=== PATIENT | male | born 1955 | race Caucasian/White ===

== ENCOUNTER 2018-01-11 22:11 | Emergency (ER) | payer OTHER ==
[~2018-01-11] VITALS: Ht 190.5 cm; Wt 102.1 kg
[2018-01-11 22:20] VITALS: TEMP 36.8; Ht 190.5 cm; Wt 102.1 kg
--- NOTE | 2018-01-11 23:09 | DIAGNOSTIC IMAGING REPORT ---
KUB HISTORY: Foreign body of the rectum. fb rectum COMPARISON: None. FINDINGS: The bowel gas pattern is non-obstructive. Foreign body of the pelvis measures up to 19.8 x 3.7 cm. foreign body contains metallic density components with apparent batteries. Dystrophic calcifications are seen of the pelvis adjacent to the iliac crests and projecting over the right superior pubic ramus. Levoscoliosis of the lumbar spine with corpectomy changes and lateral plate and screw fusion hardware at L2-L4. Moderate stool volume of the right hemicolon. There is no organomegaly. No renal calculi. No ureteral calculi. No pneumoperitoneum or pneumatosis. No fracture. IMPRESSION: 1. 19.8 cm foreign body of the pelvis. 2. Nonobstructive bowel gas pattern. Electronically signed by: Henry Portillo M.D. 01/11/2018 11:07 PM Dictated Date/Time: 01/11/2018 11:03 PM
[2018-01-11] MEDS ORDERED: SODIUM CHLORIDE 0.9% 1000ML 1,000 ML IV STA (23:12)
[2018-01-11] MEDS ORDERED: MULT-506 PO (23:17)
[2018-01-11] MEDS ORDERED: OMEGCAP2 PO (23:18)
[2018-01-11] MEDS ORDERED: MULT-188 PO (23:18)
[2018-01-11] MEDS ORDERED: ASPI81TA28 PO (23:19)
[2018-01-11] MEDS ORDERED: TADA10TA PO (23:19)
[2018-01-11] MEDS ORDERED: CINN500T PO (23:20)
[2018-01-11] MEDS ORDERED: MoRPHine SULFATE 4 MG/ML 1 ML CARP\\VIAL IV STA (23:24)
[2018-01-11 23:49] LABS: BASO % 0.2 %; BASO ABS # 0.02 K/uL (0-0.2); EOS % 1.9 %; EOS ABS # 0.17 K/uL (0-0.5); HEMATOCRIT 37.5 % (42-52); IG# 0.02 K/uL (0.00-0.02); LYMPH % 14.2 %; LYMPH ABS # 1.26 K/uL (1.2-3.4); MEAN CELL VOLUME 87.4 fL (80-100); MEAN CORPUSCULAR HEMOGLOBIN 32.6 pg (25-34); MEAN CORPUSCULAR HGB CONC 37.3 g/dl (32-36); MEAN PLATELET VOLUME 8.5 fL (7.4-10.4); MONO % 7.9 %; NEUT % 75.6 %; NEUT ABS # 6.68 K/uL (1.4-6.5); PLATELET COUNT 199 K/uL (130-400); RED CELL DISTRIBUTION WIDTH CV 12.8 % (11.5-14.5); WHITE BLOOD COUNT 8.85 K/uL (4.8-10.8)
[2018-01-12 00:06] LABS: CALCIUM 8.1 mg/dl (8.5-10.1); CREATININE 0.95 mg/dl (0.60-1.40); POTASSIUM 3.7 mmol/L (3.5-5.1)
[2018-01-12 00:28] LABS: PTT PATIENT 26.5 SECONDS (21.0-31.0)
[2018-01-12] MEDS ORDERED: METRONIDAZOLE 500MG / 100ML NSS IV STA (00:38)
[2018-01-12] MEDS ORDERED: PIPERACILLIN/TAZOBACTAM 4.5 GM/100ML D5W IV STA (00:38)
--- NOTE | 2018-01-12 00:41 | EMERGENCY ROOM VISIT NOTE ---
History Report prepared by Charles: Felecia Galdamez Under the Supervision of: Nimco SyedO. First contact with patient: 22:29 Chief Complaint: FOREIGNBODY ANY BODY PART Stated Complaint: BOWEL OBSTRUCTION, CANT PASS FECES History of Present Illness The patient is a 62 year old male who presents to the Emergency Room with complaints of persistent foreign body lodged in rectum. He states that he was using a vibrator toy and accidently got it stuck in his rectum. He states it has been in there for 1.5 hours. He reports using a hook tool to try and catch it while pushing, though was unsuccessful. The patient's spouse states the vibrator is one piece and the vibrating portion is further up. The patient reports abdominal pain. Source of History: patient Onset: 1.5 hours Position: other (rectum) Quality: other (lodged foreign body) Timing: other (persistent) Associated Symptoms: + abdominal pain Review of Systems See HPI for pertinent positives & negatives. A total of 10 systems reviewed and were otherwise negative. Past Medical & Surgical Surgical Problems: (1) History of toe surgery (2) Previous back surgery Family History Cancer Hypertension Social History Smoking Status: Never Smoker Smokeless Tobacco Use: No Alcohol Use: occasionally Drug Use: none Marital Status: Housing Status: lives with significant other Occupation Status: employed Current/Historical Medications Scheduled Aspirin (Aspirin Ec), 81 MG PO DAILY Cinnamon (Cinnamon), Unknown Dose PO DAILY Multiple Vitamins W/ Minerals (Ocuvite), 1 TAB PO DAILY Multivitamin (Multivitamin), 1 TAB PO DAILY [place]-3 Fatty Acids (Fish Oil), 1 CAP PO DAILY Tadalafil (Cialis), 5 MG PO UD Allergies Coded Allergies: No Known Allergies (Unverified , 01/11/18) Physical Exam Vital Signs Date Time Temp Pulse Resp B/P (MAP) Pulse Ox O2 Delivery O2 Flow Rate FiO2 01/12/18 00:39 112 20 141/94 94 Room Air 01/11/18 23:57 108 16 132/86 95 Room Air 01/11/18 22:20 36.8 88 18 194/108 96 Room Air Physical Exam CONSTITUTIONAL/VITAL SIGNS: Reviewed / noted above. GENERAL: Non-toxic in appearance. INTEGUMENTARY: Warm, dry, and [place]. HEAD: Normocephalic. EYES: without scleral icterus or trauma. ENT/OROPHARYNX: clear and moist. LYMPHADENOPATHY/NECK: Is supple without lymphadenopathy or meningismus. RESPIRATORY: Lungs clear and equal. CARDIOVASCULAR: Regular rate and rhythm. GI/ABDOMEN: Soft and nontender. No organomegaly or pulsatile mass. No rebound or guarding. Normal bowel sounds. EXTREMITIES: Warm and well perfused. BACK: No CVA tenderness. NEUROLOGICAL: Intact without focal deficits. PSYCHIATRIC: normal affect. MUSCULOSKELETAL: Normally developed with good muscle tone. RECTAL: Gross bleeding on rectal exam. Medical Decision & Procedures ER Provider Diagnostic Interpretation: Radiology results as stated below per my review and radiologist interpretation: KUB HISTORY: Foreign body of the rectum. fb rectum COMPARISON: None. FINDINGS: The bowel gas pattern is non-obstructive. Foreign body of the pelvis measures up to 19.8 x 3.7 cm. foreign body contains metallic density components with apparent batteries. Dystrophic calcifications are seen of the pelvis adjacent to the iliac crests and projecting over the right superior pubic ramus. Levoscoliosis of the lumbar spine with corpectomy changes and lateral plate and screw fusion hardware at L2-L4. Moderate stool volume of the right hemicolon. There is no organomegaly. No renal calculi. No ureteral calculi. No pneumoperitoneum or pneumatosis. No fracture. IMPRESSION: 1. 19.8 cm foreign body of the pelvis. 2. Nonobstructive bowel gas pattern. Electronically signed by: Henry Portillo M.D. 01/11/2018 11:07 PM Dictated Date/Time: 01/11/2018 11:[address] ABDOMEN & PELVIS Without Contrast: Large elongated foreign body with metallic components within the rectum and sigmoid colon. Suggest correlation with clinical history. Evidence of local perforation with free air adjacent to the rectum in the presacral region. No abscess. Radiologist: Derek Metzger MD. Study ready at 23:45 and initial results transmitted at 00:26 Laboratory Results 01/11/18 23:39 Red Blood Count 4.29, Mean Corpuscular Volume 87.4, Mean Corpuscular Hemoglobin 32.6, Mean Corpuscular Hemoglobin Concent 37.3, Mean Platelet Volume 8.5, Neutrophils (%) (Auto) 75.6, Lymphocytes (%) (Auto) 14.2, Monocytes (%) (Auto) 7.9, Eosinophils (%) (Auto) 1.9, Basophils (%) (Auto) 0.2, Neutrophils # (Auto) 6.68, Lymphocytes # (Auto) 1.26, Monocytes # (Auto) 0.70, Eosinophils # (Auto) 0.17, Basophils # (Auto) 0.02 01/11/18 23:39 Test 01/11/18 23:39 White Blood Count 8.85 K/uL (4.8-10.8) Red Blood Count 4.29 M/uL (4.7-6.1) Hemoglobin 14.0 g/dL (14.0-18.0) Hematocrit 37.5 % (42-52) Mean Corpuscular Volume 87.4 fL (80-100) Mean Corpuscular Hemoglobin 32.6 pg (25-34) Mean Corpuscular Hemoglobin Concent 37.3 g/dl (32-36) Platelet Count 199 K/uL (130-400) Mean Platelet Volume 8.5 fL (7.4-10.4) Neutrophils (%) (Auto) 75.6 % Lymphocytes (%) (Auto) 14.2 % Monocytes (%) (Auto) 7.9 % Eosinophils (%) (Auto) 1.9 % Basophils (%) (Auto) 0.2 % Neutrophils # (Auto) 6.68 K/uL (1.4-6.5) Lymphocytes # (Auto) 1.26 K/uL (1.2-3.4) Monocytes # (Auto) 0.70 K/uL (0.11-0.59) Eosinophils # (Auto) 0.17 K/uL (0-0.5) Basophils # (Auto) 0.02 K/uL (0-0.2) RDW Standard Deviation 41.0 fL (36.4-46.3) RDW Coefficient of Variation 12.8 % (11.5-14.5) Immature Granulocyte % (Auto) 0.2 % Immature Granulocyte # (Auto) 0.02 K/uL (0.00-0.02) Prothrombin Time 10.6 SECONDS (9.0-12.0) Prothromb Time International Ratio 1.0 (0.9-1.1) Activated Partial Thromboplast Time 26.5 SECONDS (21.0-31.0) Partial Thromboplastin Ratio 1.0 Anion Gap 9.0 mmol/L (3-11) Est Creatinine Clear Calc Drug Dose 103.0 ml/min Estimated GFR () 98.3 Estimated GFR (Non- 84.9 BUN/Creatinine Ratio 16.0 (10-20) Calcium Level 8.1 mg/dl (8.5-10.1) Laboratory results as stated above per my review. Medications Administered Medications (Trade) Dose Ordered Sig/Miranda Route Start Time Stop Time Status Last Admin Dose Admin Sodium Chloride 1,000 ml @ 999 mls/hr Q1H1M STAT IV 01/11/18 23:12 01/12/18 00:12 DC 01/11/18 23:50 999 MLS/HR Morphine Sulfate (MoRPHine SULFATE INJ) 4 mg NOW STAT IV 01/11/18 23:24 01/11/18 23:25 DC 01/11/18 23:51 4 MG Piperacillin Sod/ Tazobactam Sod (Zosyn Iv) 4.5 gm NOW STAT IV 01/12/18 00:38 01/12/18 00:39 DC 01/12/18 00:45 4.5 GM Metronidazole (Flagyl / Nss) 500 mg NOW STAT IV 01/12/18 00:38 01/12/18 00:39 DC 01/12/18 00:50 500 MG Procedure Foreign body removal: I attempted to remove the foreign body with obstetric forceps, though was unsuccessful. On insertion of the speculum a moderate amount of bleeding was noted, the speculum was inserted to attempt to feel the device but unable to touch the device, but a vibration was felt in the vicinity. ED Course 4: Previous medical records were reviewed. The patient was evaluated in room B9. A complete history and physical examination was performed. I attempted to remove the foreign body, though was unsuccessful. Please see procedural note. I informed the patient that the surgeon will be notified. 2310: I spoke with Scooby Davis PA-C, general surgery. We discussed the patient' s case. The patient will be evaluated. 2312: Ordered Sodium Chloride 1,000 ml @ 999 mls/hr IV 2315: I reassessed the patient at this time. The patient agreed to have a CT scan. 2324: Ordered Morphine Sulfate 4 mg IV 2327: I spoke with Dr. Maldonado, general surgeon. We discussed the patient's case. He will evaluate the patient, though recommends the patient be transferred to a tertiary care facility. 2336: I spoke with Dr. Sahu, research contracts supervisor. We discussed the patient's case. The patient will be further evaluated. 2346: I reassessed the patient at this time. I discussed the results and treatment plan with the patient. I answered all pertaining questions that he had. He expressed understanding and verbalized agreement. The patient will be further evaluated. 0032: I spoke with Dr. Sahu, research contracts supervisor. We discussed the patient's case. He recommends the patient be sent to a tertiary care facility after evaluating the CT scan. 0038: Ordered Flagyl 500 mg IV and Zosyn 4.5 gm IV 0050: I spoke with Dr. Trinh, [facility] general surgeon. We discussed the patient's case. He recommends the patient go straight to the ED. 0100: I spoke with Dr. Ziegler, [facility] ED. We discussed the patient' s case. He accepted the patient to the [facility] ED. 0105: I reassessed the patient at this time. I discussed the results and treatment plan with the patient. I answered all pertaining questions that he had. He expressed understanding and verbalized agreement. The patient will be transferred to [facility] for further care. Medical Decision Differentials considered include foreign body of rectum, colon trauma, colon perforation, and anemia. This is a 62-year-old male who presents to the ED with a chief complaint of a foreign body in the rectum and rectal bleeding. The patient states that he was using a vibrator and lost it in his rectum. This occurred about an hour or so prior to arrival. The patient states that he attempted to retrieve this with a mechanics hook. He noticed some moderate rectal bleeding following this and decided to come in for evaluation as he had no success in retrieving the device. The patient's exam does not reveal any significant abdominal tenderness. A speculum was used in the rectum to see if the device was nearby. There was a moderate amount of gross blood that drained with the speculum being placed. I also used a obstetric forceps to see if the device was nearby. I was unable to touch the device although I could sense some vibrations in the vicinity. The initial KUB reveals a foreign body in distal colon. Blood work including CBC and chemistry panel was unremarkable. CT scan of the abdomen pelvis revealed a foreign body in the rectum and sigmoid colon. There was also evidence of a perforation with some free air adjacent to the rectum in the presacral region. The patient was evaluated by Dr. Maldonado. I also spoke with Dr. Sahu prior to the CT scan results. After discussing the results, it was felt that the patient would be best served being transferred to a tertiary care center for specialist not available here. The patient would like to be sent to [facility]. He was given IV Zosyn and IV Flagyl in addition to IV fluids and IV morphine. The patient will be transported by ambulance. Medication Reconcilliation Current Medication List: was personally reviewed by me Blood Pressure Screening Patient's blood pressure: Elevated blood pressure Blood pressure disposition: Elevated BP felt to be situational Consults Time Called: 230 Consulting Physician: Scooby Davis PA-C, general surgery Returned Call: 2310 I spoke with Scooby Davis PA-C, general surgery. We discussed the patient's case. The patient will be evaluated. Additional Consults: Time Called: 232 Consulted Physician: Dr. Maldonado, general surgeon Additional Comments: I spoke with Dr. Maldonado, general surgeon. We discussed the patient's case. He will evaluate the patient, though recommends the patient be transferred to a tertiary care facility. Time Called: 233 Consulted Physician: Dr. Sahu, research contracts supervisor Returned Call: 2336 Additional Comments: 2336: I spoke with Dr. Sahu, research contracts supervisor. We discussed the patient's case. The patient will be further evaluated. 0050: I spoke with Dr. Trinh, [facility] general surgeon. We discussed the patient's case. He recommends the patient go straight to the ED. 0100: I spoke with Dr. Ziegler, [facility] ED. We discussed the patient' s case. He accepted the patient to the [facility] ED. Impression Primary Impression: Foreign body of rectum Additional Impressions: Rectal bleeding Rectal perforation Scribe Attestation The scribe's documentation has been prepared under my direction and personally reviewed by me in its entirety. I confirm that the note above accurately reflects all work, treatment, procedures, and medical decision making performed by me. Departure Information Dispostion Transfer Acute Care Facility ([facility]) Referrals No Doctor, Assigned (PCP) Patient Instructions My [facility] Problem Qualifiers
--- NOTE | 2018-01-12 01:05 | GASTROINTESTINAL CONSULTATION ---
DATE OF CONSULTATION: 01/12/2018 REASON FOR EVALUATION: Rectal foreign body. HISTORY OF PRESENT ILLNESS: The patient is a 62-year-old male who 2 hours previously had an 8-inch vibrator placed in the rectum. The vibrator moved up into the rectum and he was unable to retrieve it. At this point, he became concerned and tried to extract it manually. He used a metal hook device to try to hook the device and pull it out and was unsuccessful, but damaged the rectal lining and he said it bled quite a bit at home which alarmed him and that is when he decided to come to the Emergency Room. Plain film of the abdomen shows foreign body positioned vertically in the pelvis. PAST MEDICAL HISTORY: Negative. MEDICATIONS: None. ALLERGIES: None. SOCIAL HISTORY: The patient is . He is accompanied by his . PHYSICAL EXAMINATION: GENERAL: The patient appears awake, alert, in no acute distress. VITAL SIGNS: Pulse is 108, blood pressure is 132/86, temperature is 36.8. ABDOMEN: Soft. There are no masses appreciated. RECTAL: Exam shows a foreign body palpable at about 5 cm inside the anal canal. There is no obvious tenderness on rectal exam. IMPRESSION AND PLAN: CT scan was performed and unfortunately shows some gas outside the rectum posteriorly indicating that the rectal wall has been perforated. This would obviate us being able to detect this endoscopically as it may aggravate the perforation and it is unfortunately the case that the patient will probably require a laparotomy with abdominal removal and diverting colostomy. I will defer this to the surgeon at this point.
[2018-01-12 02:45] VITALS: BP 127/82; PULSE 104; O2SAT 99
--- NOTE | 2018-01-12 06:31 | HISTORY & PHYSICAL EXAMINATION ---
DATE OF ADMISSION: 01/12/2018 Consult for rectal foreign body. HISTORY OF PRESENT ILLNESS: The patient is a 62-year-old male who apparently was using a device at home, which was placed into the rectum and became lodged. Apparently, the patient did attempt to remove the object with some type of hook device, but apparently was unable to and then had some significant bleeding from the rectum and presents to the Emergency Room. Currently, it is just barely able to be palpated with the tip of the finger, but is lodged high in the rectum on a KUB. Attempts by the ER physician to remove the item were unsuccessful. MEDICAL HISTORY: The patient's past history includes history of toe surgery and back surgery. FAMILY AND SOCIAL HISTORY: Noncontributory. MEDICATIONS: He does not take major prescription medications. ALLERGIES: He has no known allergies. PHYSICAL EXAMINATION: GENERAL: He is very mildly tachycardic in the low 100s, regular rhythm. His blood pressure is normal. Patient is nontoxic in appearance. SKIN: Warm. HEAD: Atraumatic. EYES: His sclerae are normal. NECK: Supple. RESPIRATORY: He is in no respiratory distress. HEART: Shows regular rhythm. ABDOMEN: Soft. It is difficult to palpate a significant mass. EXTREMITIES: He has no evidence of rashes. He has a normal alert affect. His CAT scan was reviewed showing the foreign body relatively high into the sigmoid colon and there appears to be some perirectal gas in the extraperitoneal space. ASSESSMENT AND PLAN: A 62-year-old male with rectosigmoid foreign body. I have discussed with the Emergency Room physician, most likely my treatment would end up being laparotomy with diverting colostomy. We did ask GI to evaluate the patient and also discussed the possible need for transfer with a need for colorectal surgery. After review of the CT scan and also the fact that Dr. Sahu did see the patient and felt that he would be unable to attempt removal, we felt that transfer to [facility] with colorectal surgery may be the only way to avoid colostomy. However, this may not be the case. His rectal injury may be extremely difficult to repair depending on its severity.
--- NOTE | 2018-01-12 07:40 | DIAGNOSTIC IMAGING REPORT ---
ABD/PELVIS NO IV OR ORAL CONT CLINICAL HISTORY: 62 years-old Male presenting with ABDOMINAL PAIN/GI. TECHNIQUE: Multidetector CT of the abdomen and pelvis was performed without the use of intravenous contrast. IV contrast: None. A dose lowering technique was used consistent with the principles of ALARA (as low as reasonably achievable). COMPARISON: Plain abdominal radiograph performed earlier the same day. CT DOSE (mGy.cm): The estimated cumulative dose is 660.25 mGy.cm. FINDINGS: [employer] topogram: Foreign body projects over the pelvis. Plate and screw fixation of the lumbar spine with interbody cage. Lung bases: Minimal basilar opacities, likely atelectasis. Normal heart size. Coronary artery calcification. No pericardial or pleural effusion. Liver: Normal morphology. Normal density. Biliary: No gross biliary ductal dilatation allowing for noncontrast technique. Gallbladder decompressed. Pancreas: Normal noncontrast appearance. Spleen: Normal noncontrast appearance. Adrenal glands: Normal noncontrast appearance. Kidneys and ureters: Normal noncontrast appearance. No nephrolithiasis. No hydronephrosis. Normal ureters. Bladder: Normal. Pelvic organs: Prostate and seminal vesicles normal. Bowel: Wall thickening of the lower rectum and into rectal junction. Extraluminal gas noted in the extraperitoneal pelvis in the presacral region and left pelvic sidewall. Foci of gas within the wall of the posterior rectum, which is the presumed site of perforation. An tubular mechanical foreign body is in place in the rectum extending from the mid rectum to the distal sigmoid colon. No bowel obstruction. The appendix is normal. Peritoneal cavity: No free fluid or intraperitoneal gas. Lymph nodes: No gross lymphadenopathy allowing for noncontrast technique. Vasculature: Atherosclerosis of the normal caliber abdominal aorta. Abdominal wall: Small fat-containing umbilical hernia. Musculoskeletal: Degenerative changes of the spine. Postsurgical changes of screw and paty fixation of the left lateral aspects of the L2-L4 vertebral bodies. Interbody cage is noted at the level of L3, where there is a compression deformity. IMPRESSION: 1. Tubular mechanical foreign body within the rectum. There is resultant wall thickening and inflammatory change of the lower rectum along the posterior wall with perforation and resultant extraperitoneal pelvic gas. No free intraperitoneal gas. The report will be called/faxed according to standard departmental protocol. Electronically signed by: Ezra Maloney M.D. 01/12/2018 7:38 AM Dictated Date/Time: 01/12/2018 6:51 AM
== END 2018-01-12 02:45 | disposition short-term general hospital (02) ==
LOC: C.EDB 22:12
DX: S36.63XA Laceration of rectum, initial encounter (principal); T18.5XXA Foreign body in anus and rectum, initial encounter; W26.9XXA Contact with unspecified sharp object(s), initial encounter; Z79.82 Long term (current) use of aspirin